=== PATIENT | male | born 1985 | race Caucasian/White ===

== ENCOUNTER 2017-03-18 20:34 | Emergency (ER) | payer SELFPAY ==
[~2017-03-18] VITALS: Ht 193 cm; Wt 82.0 kg
[2017-03-19] MEDS ORDERED: IBUPROFEN 600MG TABLET PO ONE (02:30)
[2017-03-19 04:15] VITALS: BP 108/61
== END 2017-03-19 04:38 | disposition home or self-care (01) ==
LOC: ER 21:11
DX: M20.011 Mallet finger of right finger(s) (principal); M20.091 Other deformity of right finger(s); F12.10 Cannabis abuse, uncomplicated; W19.XXXA Unspecified fall, initial encounter; Y93.89 Activity, other specified; Y92.89 Other specified places as the place of occurrence of the external cause; Y99.8 Other external cause status
CPT/HCPCS: 29130; 73130; 99284